=== PATIENT | female | born 1975 | race Caucasian/White ===

== ENCOUNTER 2017-03-08 23:24 | Emergency (ER) | payer OTHER ==
[2017-03-09] MEDS ORDERED: PROCHLORPERAZINE EDISYLATE INJ 10 MG/2 ML VIAL IV ONE (02:16)
[2017-03-09] MEDS ORDERED: DEXAMETHASONE SOD PHOS INJ 10 MG/1 ML VIAL IV ONE (02:16)
[2017-03-09] MEDS ORDERED: DIPHENHYDRAMINE HCL 50 MG/ML VIAL IV ONE (02:16)
[2017-03-09] MEDS ORDERED: KETOROLAC TROMETHAMINE INJ/PF 30 MG/1 ML SDV IV ONE (02:16)
--- NOTE | 2017-03-09 02:22 | ER Document Report ---
ED Headache - General Chief Complaint: Headache Stated Complaint: NUMBNESS ON HEAD Time Seen by Provider: 03/09/17 00:47 Notes: Patient is a 41-year-old female without past medical history who presents with 2 weeks of a dull, constant throbbing headache. Worsened by lights and sounds. She has not heard anything to improve the headache. States that she believes this started from a small cyst on her central forehead which seems to be a trigger point. She has not seen a primary care doctor regarding today's concerns. Has a prior history of headaches. Her headache was gradual in onset and has progressively worsened. She denies any focal weakness or numbness but does complain of paresthesias in her right scalp. She has not had any vomiting , fever, or altered mental status. TRAVEL OUTSIDE OF THE [place] IN LAST 30 DAYS: No - Related Data Allergies/Adverse Reactions: No Known Allergies Allergy (Verified 03/08/17 23:34) Past Medical History - General Information source: Patient - Social History Smoking Status: Never Smoker Frequency of alcohol use: None Drug Abuse: None Lives with: Spouse/Significant other Family History: Reviewed & Not Pertinent Patient has suicidal ideation: No Patient has homicidal ideation: No Renal/ Medical History: Denies: Hx Peritoneal Dialysis Review of Systems - Review of Systems Notes: Constitutional: Negative for fever. HENT: Negative for sore throat. Eyes: Negative for visual changes. Cardiovascular: Negative for chest pain. Respiratory: Negative for shortness of breath. Gastrointestinal: Negative for abdominal pain, vomiting or diarrhea. Genitourinary: Negative for dysuria. Musculoskeletal: Negative for back pain. Skin: Negative for rash. Neurological: Positive for headache 10 point ROS negative except as marked above and in HPI. Physical Exam - Vital signs Vitals: Temp Pulse Resp BP Pulse Ox 97.8 F 96 18 121/82 100 03/08/17 23:34 03/08/17 23:34 03/08/17 23:34 03/08/17 23:34 03/08/17 23:34 Interpretation: Normal Notes: PHYSICAL EXAMINATION: GENERAL: Well-appearing, well-nourished and in no acute distress. HEAD: Atraumatic, normocephalic. EYES: Pupils equal round and reactive to light, extraocular movements intact, sclera anicteric, conjunctiva are normal. ENT: nares patent, oropharynx clear without exudates. Moist mucous membranes. NECK: Normal range of motion, supple without lymphadenopathy LUNGS: Breath sounds clear to auscultation bilaterally and equal. No wheezes rales or rhonchi. HEART: Regular rate and rhythm without murmurs ABDOMEN: Soft, nontender, normoactive bowel sounds. No guarding, no rebound. No masses appreciated. EXTREMITIES: Normal range of motion, no pitting or edema. No cyanosis. NEUROLOGICAL: Face symmetric. Tongue protrudes midline. Extraocular motions intact. Pupils are 2 mm and equally reactive. Normal speech, normal gait. 5 out of 5 strength in both the distal and proximal upper and lower extremities bilaterally. Sensation is grossly intact throughout. Finger to nose testing normal. Pronator drift normal. PSYCH: Normal mood, normal affect. SKIN: Warm, Dry, normal turgor, no rashes or lesions noted. Course - Re-evaluation Re-evalutation: 03/09/17 02:22 Presentation of a headache that appears to be most consistent with tension versus migrainous type headache. Headache was not maximal in onset, patient has no focal neurologic deficits, no nuchal rigidity, vital signs within normal limits, no papilledema, and patient is overall well in appearance. Based on clinical history and examination I do not suspect an acute subarachnoid hemorrhage, dural venous sinus thrombosis, acute meningitis, or intercranial mass. Given my low clinical suspicion for any acute life-threatening etiology, I do not feel advanced neuro imaging or laboratory testing is indicated at this time. Will proceed with headache cocktail and reassess. 03/09/17 02:50 Patient has had resolution of her scalp paresthesias. Her headache is now again resolved except over the small area where she has a sebaceous cyst on her central forehead which I suspect is the trigger for her migraine headache. I have encouraged her to follow-up with dermatology to have a an excision of this area. At this time will discharge with return precautions and follow-up recommendations. Verbal discharge instructions given a the bedside and opportunity for questions given. Medication warnings reviewed. Patient is in agreement with this plan and has verbalized understanding of return precautions and the need for primary care follow-up in the next 24-72 hours. - Vital Signs Vital signs: Temp Pulse Resp BP Pulse Ox 97.8 F 96 18 121/82 100 03/08/17 23:34 03/08/17 23:34 03/08/17 23:34 03/08/17 23:34 03/08/17 23:34 Discharge - Discharge Clinical Impression: Sebaceous cyst Migraine headache Qualifiers: Migraine type: unspecified Status migrainosus presence: with status migrainosus Intractability: not intractable Qualified Code(s): G43.901 - Migraine, unspecified, not intractable, with status migrainosus Condition: Good Disposition: HOME, SELF-CARE Additional Instructions: Today you presented with a migraine headache that was likely triggered by a sebaceous cyst on your forehead. You need to have this cyst removed by taxonomist. You were seen today for a migraine headache. Please follow-up with your primary care doctor regarding today's ED visit. Return to emergency department immediately if you develop a headache that gets to its maximum severity within 20 minutes of onset, you pass out, you develop weakness, numbness, changes in your vision, become unable to keep any fluids down for more than 12 hours, or develop a fever greater than 100.4 degrees Fahrenheit. If you develop a similar migraine headache in the future I recommend that you immediately take 600 mg of ibuprofen and 50 mg of Benadryl and go to sleep as quickly as possible. This can often prevent your migraine headache from becoming severe.
[2017-03-09] MEDS ORDERED: LIDOCAINE 2% JELLY 5 ML TUBE TOP ONE (02:50)
[2017-03-09 03:56] VITALS: BP 95/55
== END 2017-03-09 04:20 | disposition home or self-care (01) ==
LOC: ER 23:24
DX: G43.901 Migraine, unspecified, not intractable, with status migrainosus (principal); L72.3 Sebaceous cyst; R20.0 Anesthesia of skin
CPT/HCPCS: 99283; 96374; 96375; J1200; J1885; J0780; J1100

== ENCOUNTER 2017-03-09 08:06 | Emergency (ER) | payer OTHER ==
--- NOTE | 2017-03-09 09:54 | RADIOLOGY REPORT (SQ) ---
EXAM DESCRIPTION: CT HEAD WITHOUT COMPLETED DATE/TIME: 03/09/2017 9:35 am REASON FOR STUDY: headache COMPARISON: None. TECHNIQUE: Axial images acquired through the brain without intravenous contrast. Images reviewed wi th bone, brain and subdural windows. Images stored on PACS. All CT scanners at this facility use dose modulation, iterative reconstruction, and/or weight based d osing when appropriate to reduce radiation dose to as low as reasonably achievable (ALARA). [facility]: Dose Right [facility]: CareDose [facility]: Dose Right [facility]: Teradose 4D [facility]: [email or web address] RADIATION DOSE: Up-to-date CT equipment and radiation dose reduction techniques were employed. CTDIv ol: 64.6 mGy. DLP: 1292 mGy-cm. mGy. LIMITATIONS: None. FINDINGS: VENTRICLES: Normal size and contour. CEREBRUM: No masses. No hemorrhage. No midline shift. No evidence for acute infarction. Normal gra y/white matter differentiation. No areas of low density in the white matter. CEREBELLUM: No masses. No hemorrhage. No alteration of density. No evidence for acute infarction. EXTRAAXIAL SPACES: No fluid collections. No masses. ORBITS AND GLOBE: No intra- or extraconal masses. Normal contour of globe without masses. CALVARIUM: No fracture. PARANASAL SINUSES: No fluid or mucosal thickening. SOFT TISSUES: No mass or hematoma. OTHER: No other significant finding. IMPRESSION: NORMAL BRAIN CT WITHOUT CONTRAST. COMMENT: Quality ID # [id number]: Final reports with documentation of one or more dose reduction techniques (e.g., Automated exposure control, adjustment of the mA and/or kV according to patient size, use of iterative reconstruction technique) TECHNICAL DOCUMENTATION: JOB ID: [id number] 1991 [employer]- All Rights Reserved
--- NOTE | 2017-03-09 10:47 | ER Document Report ---
ED Headache - General Mode of Arrival: Ambulatory Information source: Patient TRAVEL OUTSIDE OF THE [place] IN LAST 30 DAYS: No - HPI Patient complains to provider of: Headache Associated symptoms: Other - see above - General Chief Complaint: Headache Stated Complaint: HEAD PAIN Time Seen by Provider: 03/09/17 08:43 Notes: Patient is a 41 year old female who presents to the ED with complaints headache , blurred vision, and numbness to the top right portion of his head. Patient was seen and discharged from the ED this morning. She immediately checked back into be seen by a different provider. Patient had all the same complaints, she was wanting a CT or MRI of her head just to make sure. Patient has had headaches in the past but has never been evaluated, she states she only ever takes ibuprofen for them. Patient states she is also suicidal and she would cut her wrists. Immediately after leaving the room patient states that she was lying, she is not suicidal. She has never been suicidal, she has no history of depression, bipolar or schizophrenia. Patient states she is homeless, she is very tired and just wants a place to sleep for a few hours. (ARA FAIRCHILD) - Related Data Allergies/Adverse Reactions: No Known Allergies Allergy (Verified 03/09/17 08:10) Past Medical History - General Information source: Patient - Social History Smoking Status: Former Smoker Chew tobacco use (# tins/day): No Frequency of alcohol use: None Drug Abuse: None Family History: Reviewed & Not Pertinent Patient has suicidal ideation: Yes Patient has homicidal ideation: No Renal/ Medical History: Denies: Hx Peritoneal Dialysis Surgical Hx: Negative Review of Systems - Review of Systems Constitutional: No symptoms reported EENT: See HPI, Blurred vision Cardiovascular: No symptoms reported Respiratory: No symptoms reported Gastrointestinal: No symptoms reported Genitourinary: No symptoms reported Female Genitourinary: No symptoms reported Musculoskeletal: No symptoms reported Skin: No symptoms reported Hematologic/Lymphatic: No symptoms reported Neurological/Psychological: See HPI, Headaches Physical Exam - General General appearance: Appears well, Alert In distress: None - HEENT Head: Normocephalic, Atraumatic Eyes: Normal Extraocular movements intact: Yes Pupils: PERRL - Respiratory Respiratory status: No respiratory distress Chest status: Nontender Breath sounds: Normal Chest palpation: Normal - Cardiovascular Rhythm: Regular Heart sounds: Normal auscultation Murmur: No - Abdominal Inspection: Normal Distension: No distension Tenderness: Nontender - Back Back: Normal - Extremities General upper extremity: Normal inspection, Normal ROM, Normal strength General lower extremity: Normal inspection, Normal ROM, Normal strength - Neurological Neuro grossly intact: Yes Cognition: Normal Orientation: AAOx4 [place] Coma Scale Eye Opening: Spontaneous [place] Coma Scale Verbal: Oriented [place] Coma Scale Motor: Obeys Commands Julia Coma Scale Total: 15 Speech: Normal Motor strength normal: LUE, RUE, LLE, RLE Sensory: Normal - Psychological Associated symptoms: Normal affect, Normal mood - Skin Skin Temperature: Warm Skin Moisture: Dry Skin Color: Normal - Vital signs Vitals: Temp Pulse Resp BP Pulse Ox 97.8 F 90 12 106/67 99 03/09/17 08:10 03/09/17 08:10 03/09/17 08:10 03/09/17 08:10 03/09/17 08:10 Course - Re-evaluation Re-evalutation: 03/09/17 12:19 Patient presents to the emergency department chief complaint of headache. She was discharged in the middle the night after seeing 1 of the other ED providers. She was complaining of headache and wanting an MRI. When I initially see her on examination she says she recently moved to the area and she has has a history of headaches in the past the past week she has had headaches. She says her same in character quality frequency duration is previous episodes she is not on any medication for them denies any history of trauma. On the second visit here she told the nurse that she was suicidal and wanted to harm herself. I talked to her at the bedside she was sleepy but appropriate she told me she wanted to harm herself and she would do so by slicing her wrist. After full examination I left the room the patient called me back into the room and apologized for lying to me and said that she is not suicidal that she is homeless and does not have a place to sleep and she is just exhausted. I did respect her for telling me the truth at that point and clearly did not need a mental health evaluation. As per request her CT of the head was negative she has been sleeping in the emergency department I am giving her resources for shelters and facilities where she can reach out to. In addition to that I am going to give the cyanide case hardener her information to see if she can offer any additional assistance. But she is otherwise stable to be discharged from the hospital I gave her the clinic for follow-up and discussed reasons for ED return sooner (YENIFER JESUS) - Vital Signs Vital signs: Temp Pulse Resp BP Pulse Ox 97.8 F 90 12 106/67 99 03/09/17 08:10 03/09/17 08:10 03/09/17 08:10 03/09/17 08:10 03/09/17 08:10 Discharge - Discharge Clinical Impression: Cephalgia Qualifiers: Headache type: unspecified Headache chronicity pattern: chronic headache Intractability: not intractable Qualified Code(s): R51 - Headache Condition: Stable Disposition: HOME, SELF-CARE Additional Instructions: Headache The physician does not feel that the headache you are experiencing has a serious underlying cause. Most headaches are due to emotional stress, with resultant muscle tension (tension headache). Occasionally, headaches are secondary to changes in the blood vessels of the scalp (vascular headache and migraine headache). Sometimes, a headache is the first symptom of another developing illness, such as a viral infection. You have no evidence of stroke, bleeding, meningitis, or other serious cause of your headache. The treatment of headaches varies with the severity and cause of the pain. Not all headaches need pain shots. In fact, there is evidence that using narcotics for headaches may make them worse in the long run. The physician will determine the therapy that's in your best interest. If you develop a fever, if the headache is different from any you've previously experienced, or if the headache progressively worsens, then call your physician at once or go to the emergency room. Referrals: [facility] [Provider Group] - Follow up in 3-5 days Scribe Attestation: 03/09/17 12:19 I personally performed the services described in the documentation reviewed the documentation recorded by my scribe in my presence and it accurately and completely records my words and actions (YENIFER JESUS) Maria Eugeniaibe Documentation - Scribe Written by Kathleen:: kathleen Ernandez, 03/09/2017, 1043 acting as scribe for :: Yonis
[2017-03-09 16:24] VITALS: BP 119/64
== END 2017-03-09 16:24 | disposition home or self-care (01) ==
LOC: ER 08:06
DX: R51 Headache (principal); H53.8 Other visual disturbances; R20.0 Anesthesia of skin; Z59.0 Homelessness; Z87.891 Personal history of nicotine dependence
CPT/HCPCS: 70450; 99284